=== PATIENT | male | born 1980 | race Caucasian/White ===

== ENCOUNTER 2016-09-23 10:16 | Emergency (ER) | payer BC ==
[~2016-09-23] VITALS: Ht 180.3 cm; Wt 81.0 kg
[~2016-09-23 10:16] MED LIST: PERC10TA27 PO; TAMS0.4C67 PO; ZOFR4TAB3 SL; ZOLO50TA PO
[2016-09-23 10:22] VITALS: BP 128/87; PULSE 58; RESP 16; TEMP 97.9; O2SAT 99
[2016-09-23] MEDS ORDERED: PANTOPRAZOLE SODIUM 40 MG VIAL IV PUSH ONE (10:45)
[2016-09-23] MEDS ORDERED: SODIUM CHLOR 0.9% 1000 ML INJ 1,000 ML IV ONE (10:45)
[2016-09-23 10:46] VITALS: O2SAT 96
[2016-09-23 10:50] LABS: AUTOMATED NEUTROPHIL # 3.8 TH/MM3 (1.8-7.7); BASOPHIL % 0.9 % (0.0-2.0); EOSINOPHIL # 0.1 TH/MM3 (0-0.4); EOSINOPHIL % 2.3 % (0.0-4.0); HEMATOCRIT 45.2 % (39.0-51.0); HEMO FLAGS DIFF FINAL; LYMPH % 18.7 % (9.0-44.0); MEAN CELL VOLUME 87.5 FL (80.0-100.0); MEAN CORPUSCULAR HEMOGLOBIN 28.9 PG (27.0-34.0); MONO % 5.5 % (0.0-8.0); NEUT % 72.6 % (16.0-70.0); PLATELET COUNT 210 TH/MM3 (150-450); RED BLOOD COUNT 5.16 MIL/MM3 (4.50-5.90); RED CELL DISTRIBUTION WIDTH 11.8 % (11.6-17.2); WHITE BLOOD COUNT 5.2 TH/MM3 (4.0-11.0)
[2016-09-23 11:01] LABS: CHLORIDE 107 MEQ/L (98-107); POTASSIUM 4.3 MEQ/L (3.5-5.1); SODIUM (NA) 144 MEQ/L (136-145)
[2016-09-23 11:05] LABS: ANION GAP 6 MEQ/L (5-15); BICARBONATE 31.1 MEQ/L (21.0-32.0); BLOOD UREA NITROGEN 11 MG/DL (7-18)
[2016-09-23 11:07] LABS: ALT (GPT) 15 U/L (12-78); AST (GOT) 14 U/L (15-37)
--- NOTE | 2016-09-23 11:07 | RADHPO ---
EXAM DATE/TIME: 09/23/2016 10:58 [facility] COMPARISON: No previous studies available for comparison. INDICATIONS : Short of breath with abdomen pain. MEDICAL HISTORY : None. SURGICAL HISTORY : Fusion, lumbar. ENCOUNTER: Initial ACUITY: 3 days PAIN SCORE: 7/10 LOCATION: Bilateral lower chest FINDINGS: A single view of the chest demonstrates the lungs to be symmetrically aerated without evidence of mas s, infiltrate or effusion. The cardiomediastinal contours are unremarkable. Osseous structures are intact. CONCLUSION: No acute cardiopulmonary process. Gregg Kraus MD on September 23, 2016 at 11:05 Board Certified Radiologist. This report was verified electronically.
[2016-09-23 11:08] LABS: GLOMERULAR FILTRATION RATE 68 ML/MIN (>89)
[2016-09-23 11:09] LABS: TOTAL BILIRUBIN ADULT 0.5 MG/DL (0.2-1.0)
--- NOTE | 2016-09-23 11:09 | PD ---
HPI Chief Complaint: Abdominal Pain Time Seen by Provider: 10:28 Travel History International Travel<30 days: No Contact w/Intl Traveler<30days: No Traveled to known affect area: No History of Present Illness HPI 36-year-old male presents with epigastric abdominal pain that has been present over the past couple of days. He notes intermittent diarrhea as well. He states he has been using Aleve for pain in his back frequently. He also notes that he drinks caffeine and alcohol. He states that he does not smoke cigarettes. He denies any trauma or other concurrent complaints. He denies migration of the pain or recurrent history of this. PFSH Past Medical History Arthritis: Yes (BACK (LUMBAR SPINE) ) Cancer: No Cardiovascular Problems: No Diabetes: No Diminished Hearing: No Endocrine: No Gastrointestinal Disorders: Yes GERD: No Genitourinary: Yes Hepatitis: No Hiatal Hernia: No Immune Disorder: No Kidney Stones: Yes (SEPTEMBER 2011) Musculoskeletal: Yes Neurologic: No Psychiatric: No Reproductive: No Respiratory: No Renal Failure: No Thyroid Disease: No Ulcer: No PNEUMOCCOCAL Vaccine (Year): 2 Past Surgical History Abdominal Surgery: No Cardiac Surgery: No Ear Surgery: No Endocrine Surgery: No Eye Surgery: No Genitourinary Surgery: No Gynecologic Surgery: No Oral Surgery: No Thoracic Surgery: No Social History Alcohol Use: Yes (2-3/WEEK) Tobacco Use: No Substance Use: No Allergies-Medications (Allergen,Severity, Reaction): Coded Allergies: No Known Allergies (Verified , 09/23/16) Reported Meds & Prescriptions Reported Meds & Active Scripts Active Protonix (Pantoprazole Sodium) 40 Mg Tab 40 Mg PO DAILY Review of Systems Except as stated in HPI: all other systems reviewed are Neg Physical Exam Narrative GENERAL: Well-nourished, well-developed patient. Well-appearing SKIN: Warm and dry. HEAD: Normocephalic and atraumatic. EYES: No injection or drainage. ENT: No nasal drainage noted. NECK: Supple, trachea midline. CARDIOVASCULAR: Regular rate and rhythm RESPIRATORY: No increased effort. No accessory muscle use. GASTROINTESTINAL: Abdomen soft, tender epigastric area, nondistended. NEUROLOGICAL: Awake and alert. Motor and sensory grossly within normal limits. Normal speech. Data Data Last Documented VS Vital Signs Date Time Temp Pulse Resp B/P Pulse Ox O2 Delivery O2 Flow Rate FiO2 09/23/16 12:09 54 20 116/73 100 09/23/16 10:22 97.9 Orders Complete Blood Count With Diff (09/23/16 10:35) Comprehensive Metabolic Panel (09/23/16 10:35) Urinalysis - C+S If Indicated (09/23/16 10:35) Chest, Single Ap (09/23/16 ) Iv Access Insert/Monitor (09/23/16 10:35) Ecg Monitoring (09/23/16 10:35) Oximetry (09/23/16 10:35) Lipase (09/23/16 10:35) Us Abdomen Gallbladder (09/23/16 ) Pantoprazole Inj (Protonix Inj) (09/23/16 10:45) Sodium Chlor 0.9% 1000 Ml Inj (Ns 1000 M (09/23/16 10:45) Labs Laboratory Tests Test 09/23/16 09/23/16 10:40 12:10 White Blood Count 5.2 TH/MM3 Red Blood Count 5.16 MIL/MM3 Hemoglobin 14.9 GM/DL Hematocrit 45.2 % Mean Corpuscular Volume 87.5 FL Mean Corpuscular Hemoglobin 28.9 PG Mean Corpuscular Hemoglobin 33.0 % Concent Red Cell Distribution Width 11.8 % Platelet Count 210 TH/MM3 Mean Platelet Volume 8.4 FL Neutrophils (%) (Auto) 72.6 % Lymphocytes (%) (Auto) 18.7 % Monocytes (%) (Auto) 5.5 % Eosinophils (%) (Auto) 2.3 % Basophils (%) (Auto) 0.9 % Neutrophils # (Auto) 3.8 TH/MM3 Lymphocytes # (Auto) 1.0 TH/MM3 Monocytes # (Auto) 0.3 TH/MM3 Eosinophils # (Auto) 0.1 TH/MM3 Basophils # (Auto) 0.0 TH/MM3 CBC Comment DIFF FINAL Differential Comment Sodium Level 144 MEQ/L Potassium Level 4.3 MEQ/L Chloride Level 107 MEQ/L Carbon Dioxide Level 31.1 MEQ/L Anion Gap 6 MEQ/L Blood Urea Nitrogen 11 MG/DL Creatinine 1.20 MG/DL Estimat Glomerular Filtration 68 ML/MIN Rate Random Glucose 91 MG/DL Calcium Level 8.9 MG/DL Total Bilirubin 0.5 MG/DL Aspartate Amino Transf 14 U/L (AST/SGOT) Alanine Aminotransferase 15 U/L (ALT/SGPT) Alkaline Phosphatase 67 U/L Total Protein 6.9 GM/DL Albumin 4.0 GM/DL Lipase 157 U/L Urine Collection Type CLEAN CATCH Urine Color YELLOW Urine Turbidity CLEAR Urine pH 6.0 Urine Specific [place] 1.012 Urine Protein NEG mg/dL Urine Glucose (UA) NEG mg/dL Urine Ketones NEG mg/dL Urine Occult Blood NEG Urine Nitrite NEG Urine Bilirubin NEG Urine Leukocyte Esterase NEG Urine RBC 0-3 /hpf Urine Squamous Epithelial 0-5 /hpf Cells Microscopic Urinalysis Comment CULT NOT INDICATED Urine Collection Time 12:10 [facility] Medical Decision Making Medical Screen Exam Complete: Yes Emergency Medical Condition: Yes Medical Record Reviewed: Yes (past history confirmed) Interpretation(s) CBC & BMP Diagram 09/23/16 10:40 Last 24 hours Impressions Gall Bladder Ultrasound 09/23/16 0000 Signed Impressions: Service Date/Time: Friday, September 23, 2016 11:57 - CONCLUSION: 1. The liver is at the upper limits of normal in size. The examination is otherwise within normal limits. Ashwin cMfadden MD Chest X-Ray 09/23/16 0000 Signed Impressions: Service Date/Time: Friday, September 23, 2016 10:58 - CONCLUSION: No acute cardiopulmonary process. Gregg Kraus MD Differential Diagnosis Gastritis, ulcer, cholelithiasis, cholecystitis, pancreatitis Narrative Course Will check blood work, urinalysis, chest x-ray, gallbladder ultrasound and dose with Protonix and reevaluate. Offered pain medication but he would prefer to start with Protonix ED workup no acute, offered additional medication here Patient denies any new complaints and states that they are feeling better. Patient happy with care, all questions answered. Patient knows that follow up is incumbent on them and to return to the emergency room immediately if new or worsening symptoms develop. Patient given strict return precautions, vitals reviewed and are normal , agrees to further workup as an outpatient. Diagnosis Primary Impression: Abdominal pain Qualified Code: R10.13 - Epigastric pain Patient Instructions: General Instructions Additional Instructions: return as needed, tylenol as needed, set up a gi doctor, follow with primary this week, limit coffee, alcohol, anti-inflammatory use Med/Other Pt SpecificInfo: Prescription(s) given Scripts Pantoprazole (Protonix)40 Mg Tab40 Mg PO DAILY #14 TAB Ref 0 Prov:Mora Medina MD 09/23/16 Disposition: 01 DISCHARGE HOME Condition: Stable Mora Medina MD Sep 23, 2016 11:09
[2016-09-23 11:10] LABS: ALKALINE PHOSPHATASE 67 U/L (45-117)
[2016-09-23 12:09] VITALS: BP 116/73; PULSE 54; RESP 20; O2SAT 100
[2016-09-23 12:20] LABS: BLOOD, URINE NEG (NEG); GLUCOSE,URINE NEG (NEG); KETONE, URINE NEG (NEG); NITRITE,URINE NEG (NEG)
[2016-09-23 12:26] LABS: COMMENT (UR) CULT NOT INDICATED; CULTURE IF INDICATED CULT NOT INDICATED; METHOD OF COLLECTION CLEAN CATCH; RBC, URINE 0-3 /hpf (0-3); SQUAMOUS EPITHELIAL CELL URINE 0-5 /hpf (0-5); URINE COLOR YELLOW (YELLW/STRAW)
--- NOTE | 2016-09-23 12:33 | RADHPO ---
EXAM DATE/TIME: 09/23/2016 11:57 [facility] COMPARISON: No previous studies available for comparison. INDICATIONS : Nausea, vomiting, abdominal pain. MEDICAL HISTORY : Kidney stones. SURGICAL HISTORY : None. ENCOUNTER: Initial ACUITY: 3 days PAIN SCORE: 5/10 LOCATION: Right upper quadrant MEASUREMENTS: LIVER: 17.4 cm length COMMON DUCT: 3 mm RIGHT KIDNEY: 10.3 x 5.2 x 3.9 cm FINDINGS: LIVER: Normal echotexture without focal lesion or ductal dilatation. The liver is at the upper limits of nor mal in size. COMMON DUCT: No intraluminal mass or stone visualized. GALLBLADDER: Contains no stones, demonstrates no wall thickening or pericholecystic fluid. PANCREAS: The visualized portions are within normal limits. RIGHT KIDNEY: No evidence of hydronephrosis, stone, or mass. CONCLUSION: 1. The liver is at the upper limits of normal in size. The examination is otherwise within normal jaramillo its. Ashwin Mcfadden MD on September 23, 2016 at 12:29 Board Certified Radiologist. This report was verified electronically.
[2016-09-23] MEDS ORDERED: PROT40TA PO (12:45)
== END 2016-09-23 13:02 | disposition home or self-care (01) ==
LOC: PHED 10:16
DX: R10.13 Epigastric pain (principal); Z87.442 Personal history of urinary calculi; R19.7 Diarrhea, unspecified
CPT/HCPCS: 71010; 76705; 80053; 81001; 83690; 85025; 96361; 96374; 99284; C9113; J7030